=== PATIENT | female | born 1965 | race Caucasian/White ===

== ENCOUNTER 2020-01-03 13:06 | Emergency (ER) | payer OTHER, SELFPAY ==
[2020-01-03] VITALS (14 sets, daily range): BP systolic 116–173; BP diastolic 72–95; PULSE 55–95; RESP 8–22; TEMP 36.7; O2SAT 94–99
--- NOTE | 2020-01-03 13:30 | RT.EKG_ITS ---
APPROVED REPORT Exam: Resting ECG Patient Location: E HR:58 bpm ECG Measurements Heart Rate 58 AXIS RI 144 P 57 QRSd 76 QRS -11 QT 394 T 21 QTc 386 <Conclusion> Bradycardia with irregular rate...V-rate 52- 70, mean < 60 I have reviewed and interpreted ECG and agree with software generated interpretation.
--- NOTE | 2020-01-03 13:45 | DI.RAD_ITS ---
EXAM: XR PORTABLE CHEST AP CLINICAL HISTORY: cough/sob/PUI TECHNIQUE: 2D digital imaging was performed. COMPARISON: No exams were available for comparison FINDINGS: LUNGS: Clear. No pleural abnormality seen. HEART: Normal. MEDIASTINUM: Normal. OTHER FINDINGS: None. IMPRESSION: No acute pulmonary findings. DATA REPOSITORY: RADIATION DOSE DELIVERED:
[2020-01-03 14:13] LABS: Abs Immature Grans 0.01 k/cumm (0.0-0.09); Absolute Basophil Count 0.02 k/cumm (0.0-0.2); Absolute Eosinophil Count 0.16 k/cumm (0.0-0.7); Absolute Lymphocyte Count 1.98 k/cumm (1.2-3.4); Absolute Monocyte Count 0.44 k/cumm (0.11-0.7); Absolute Neutrophil Count 2.42 k/cumm (1.2-6.7); Basophils % 0.4; Eosinophils % 3.2; HCT 45.9 % (36.0-46.0); HGB 15.2 g/dL (12.0-15.5); Immature Grans % 0.2 %; Lymphocytes % 39.4; Mean Corp. HGB Concentration 33.1 g/dL (32.0-36.0); Mean Corpuscular Hemoglobin 30.9 pg (27.0-33.0); Mean Corpuscular Volume 93.3 fL (80-95); Mean Platelet Volume 9.5 fL (8.0-11.0); Monocytes % 8.7; Neutrophils % 48.1; Platelet Count 269 x1000/uL (130-400); RBC 4.92 m/cumm (4.00-5.20); RBC Distribution Width 14.2 % (11.7-14.6); White Blood Cell Count 5.03 k/cumm (4.4-10.8)
[2020-01-03 14:33] LABS: ALT 29 U/L (14-59); AST 21 U/L (15-37); Albumin 3.9 g/dL (3.4-5.0); Alkaline Phosphatase 63 U/L (46-116); Anion Gap 10.6 mmol/L (3-11); BUN 14 mg/dL (7-18); Bilirubin, Total 0.4 mg/dL (0.2-1.0); CO2 26.4 mmol/L (21.0-32.0); CREATININE 0.87 mg/dL (0.55-1.02); Calcium 9.5 mg/dL (8.5-10.1); Chloride 104 mmol/L (98-107); Glucose 90 mg/dL (74-106); Potassium 3.9 mmol/L (3.5-5.1); Sodium 141 mmol/L (136-145); Total Protein 7.8 g/dL (6.4-8.2)
[2020-01-03 14:34] LABS: Troponin I < 0.05 ng/mL (<0.06)
--- NOTE | 2020-01-03 15:03 | W.ED.GENAD ---
Discharge Plan Disposition Patient Disposition: HOME Condition: Stable Discharge Details Chief Complaint: GenMedical Clinical Impression: Cough Primary Care Provider: [facility],Local ED Provider: Alberto Limon Home Meds and New Rx's Prescriptions: Continued alprazolam 1 mg Tablet 1 mg PO BID RF: 0 valacyclovir 500 mg Tablet 500 mg PO DAILY RF: 0 alprazolam 0.5 mg Tablet 0.5 mg PO DAILY PRNRF: 0 Discharge Instructions Instructions: Acute Cough (ED) Additional Instructions: Work-up in the ER today has been unremarkable for any obvious emergent process. This very well may be a viral syndrome however your COVID test is pending. Please refer to the COVID testing handout for further instructions regarding self quarantine and proper follow-up. In the meantime rest, plenty of fluids to avoid dehydration, and bwib-[id number]-rjmqytt medications as directed symptomatic control. Please watch for new or worsening symptoms and return to the ER for any concerns otherwise if you decide to stay in this area for a prolonged period of time you may want to obtain a local primary care provider here and in [place]. Stand Alone Forms: POSITIVE COVID-19/TO BE TESTED Medical Decision Making 54-year-old female with a history of anxiety presents with subjective fever, chills, dry cough, body aches for the past week. She did recently travel to and from [place]. Her son did have similar symptoms. She presents slightly anxious and hypertensive however her blood pressure did trend down without any intervention. O2 sat in the 90s on room air. She appears well, nontoxic. No respiratory distress whatsoever. Given her chest heaviness. Will obtain a single EKG and troponin. Symptoms over last around 10:00 so this is roughly 4 hours after the fact, a single troponin and EKG should be sufficient for cardiac rule out especially that ACS is extremely low my differential. Given her lack of tachycardia, hypoxia, chest pain, leg pain or swelling, I will not obtain a d-dimer as PE is extremely low suspicion. Her symptoms are certainly more infectious in nature whether this is viral or bacterial, will obtain 1 view chest x-ray here in the ER and test for COVID. No breathing treatments indicated at this time. Patient is comfortable this plan and has no additional questions or concerns Work-up in the ER including blood work, EKG, troponin, chest x-ray all unremarkable. Patient resting comfortably and in no acute distress. Discussed her work-up, COVID test pending, importance of self quarantining until results are completed. Patient does not have a local primary care provider, she will contact the ER tomorrow in roughly 24 hours to see if her COVID test has resulted. She is no longer anxious and she appears well. She has no additional questions or concerns and is comfortable with discharge. Imaging Data Radiologic Study: Attestation: I personally reviewed and interpreted this imaging study as follows: Imaging: X-Ray Radiologist's impression: Chest x-ray read by radiology as negative Lab Data Lab results reviewed: Yes I reviewed the patient's lab results. Lab results narrative: Laboratory Tests Range/Units 01/03/20 01/03/20 14:00 14:00 WBC (4.4-10.8) k/cumm 5.03 RBC (4.00-5.20) m/cumm 4.92 Hgb (12.0-15.5) g/dL 15.2 Hct (36.0-46.0) % 45.9 MCV (80-95) fL 93.3 MCH (27.0-33.0) pg 30.9 MCHC (32.0-36.0) g/dL 33.1 RDW (11.7-14.6) % 14.2 Plt Count (130-400) x1000/uL 269 MPV (8.0-11.0) fL 9.5 Immature Gran % % 0.2 Neutrophils % 48.1 Lymphocytes % 39.4 Monocytes % 8.7 Eosinophils % 3.2 Basophils % 0.4 Absolute Neutrophils (1.2-6.7) k/cumm 2.42 Absolute Lymphocytes (1.2-3.4) k/cumm 1.98 Absolute Monocytes (0.11-0.7) k/cumm 0.44 Absolute Eosinophils (0.0-0.7) k/cumm 0.16 Absolute Basophils (0.0-0.2) k/cumm 0.02 Sodium (136-145) mmol/L 141 Potassium (3.5-5.1) mmol/L 3.9 Chloride (98-107) mmol/L 104 Carbon Dioxide (21.0-32.0) mmol/L 26.4 Anion Gap (3-11) mmol/L 10.6 BUN (7-18) mg/dL 14 Creatinine (0.55-1.02) mg/dL 0.87 Estimated GFR/1.73 m2 (mL/min/1.73m2) >= 60.00 Glucose (74-106) mg/dL 90 Calcium (8.5-10.1) mg/dL 9.5 Total Bilirubin (0.2-1.0) mg/dL 0.4 AST (15-37) U/L 21 ALT (14-59) U/L 29 Alkaline Phosphatase (46-116) U/L 63 Troponin I (<0.06) ng/mL < 0.05 Total Protein (6.4-8.2) g/dL 7.8 Albumin (3.4-5.0) g/dL 3.9 ECG Data Attestation: I personally reviewed and interpreted this ECG (s) as follows: Prior ECG tracings: available for review Interpretation: EKG performed at 1352, reviewed and interpreted with Dr. Berumen. Bradycardia, ventricular to 58. No STEMI. Please see her official read HPI General Mode of arrival: ambulatory. Date/Time Provider Initiated Documentation: 01/03/20 13:18. Limitations to Documentation: no limitations. Information obtained by: patient. HPI Narrative: This is a 54-year-old female with history of anxiety who reports that she has been in [place] since the beginning of November. She then went to [place] via plane on December 19 for a , return to [place] on December 26. A day or 2 after returning she reports that she developed having generalized fatigue, body aches, subjective fever and chills, dry cough and occasional chest heaviness. She has never taken her temperature. She has not taken any itji-azr-ozpwjwa medications. She denies any chest pain, wheezing, productive cough. Denies pain or swelling in her legs. She reports that her son had similar symptoms and tested negative for COVID. She has an appointment tomorrow for Covid testing but was directed to the ER for further evaluation today. She denies any cardiac or pulmonary history. She did smoke cigarettes roughly 9 years ago. Related Data Home Medications Medication Instructions Recorded Confirmed alprazolam 0.5 mg PO DAILY PRN 01/03/20 01/03/20 alprazolam 1 mg PO BID 01/03/20 01/03/20 valacyclovir 500 mg PO DAILY 01/03/20 01/03/20 Allergies Allergy/AdvReac Type Severity Reaction Status Date / Time Sulfa (Sulfonamide Allergy Other (See Unverified 01/03/20 13:23 Antibiotics) Comment) lorazepam [From Ativan] AdvReac Other (See Unverified 01/03/20 13:24 Comment) General Stated Complaint: GenMedical QUINTEN: 3 Review of Systems Constitutional Constitutional: Reports fatigue, Reports fever(s) (Subjective) and Denies weakness ENT Ears, Nose, Mouth, and Throat: Denies neck pain and Reports sore throat (Last Tuesday) Cardiovascular Cardiovascular: Denies chest pain and Denies dyspnea Respiratory Respiratory: Reports cough, Denies dyspnea and Denies wheezing Gastrointestinal Gastrointestinal: Denies abdominal pain, Reports nausea (On Tuesday, none currently) and Denies vomiting Genitourinary Genitourinary: Denies dysuria Musculoskeletal Musculoskeletal: Denies back pain, Denies neck pain, Denies numbness and Denies tingling Integumentary/Breasts Skin/Breast: Denies rash Neurologic Neurologic: Denies numbness, Denies tingling and Denies weakness Endocrine Endocrine: Reports fatigue Allergic/Immunologic Allergic/Immunologic: Denies wheezing [facility] Social History Smoking/Tobacco Use Status: Former Tobacco Use Alcohol Intake: current Alcohol Intake frequency: holidays/special occasions only Drug use: Never Substance use type: does not use Do you feel safe at home: Yes Do you feel safe in your relationship?: Yes Exam Const General: cooperative, healthy appearing, comfortable, no acute distress and anxious Orientation: alert and awake [facility] Head: normal to inspection, normocephalic and atraumatic Face and sinus: normal facial exam Mouth: moist mucous membranes Throat: posterior oropharynx normal Eyes Conjunctivae: conjunctivae normal Sclera: sclerae normal Neck Neck: normal visual inspection, full ROM, no lymphadenopathy, trachea midline and supple Resp Effort & Inspection: normal respiratory effort and able to speak in complete sentences Auscultation: clear to auscultation bilaterally Cardio Rate: regular rate Rhythm: regular rhythm GI Palpation: soft and nontender Back/Spine/Pelvis Back: No back tenderness Skin General skin exam: no rashes or lesions noted Neuro General: patient alert, patient awake, moves all extremities and no focal motor deficits Motor: muscle tone normal throughout and strength 5/5 throughout Sensory Exam: no sensory deficits noted Extrem General: normal to inspection, full ROM, capillary refill normal, no pedal edema, no calf tenderness and other (Negative Homans sign bilaterally) Psych Appearance: grossly normal Mental Status: mental status grossly normal Course Vital Signs Vital signs: Vital Signs Temperature 36.7 C 01/03/20 13:16 Pulse 95 H 01/03/20 13:16 Respiratory Rate 18 01/03/20 13:16 Blood Pressure 173/95 H 01/03/20 13:16 Pulse Oximetry 97 01/03/20 13:16 Temperature 36.7 C 01/03/20 13:16 Temperature Source Temporal Artery Scan 01/03/20 13:16 Pulse 66 01/03/20 14:45 Pulse 69 01/03/20 14:50 Respiratory Rate 14 01/03/20 14:50 Respiratory Effort Non-Labored 01/03/20 13:27 Respiratory Depth Normal 01/03/20 13:27 Respiratory Pattern Normal 01/03/20 13:27 Blood Pressure 143/91 H 01/03/20 14:45 Blood Pressure Mean 105 01/03/20 14:45 Blood Pressure Position Sitting 01/03/20 13:16 Pulse Oximetry 94 L 01/03/20 14:50 Oxygen Delivery Method Room Air 01/03/20 13:16 Oxygen Flow Rate 0 01/03/20 13:16 Pain Level 0 01/03/20 13:16 Lab/Test Results Lab/Test Results: Laboratory Tests Range/Units 01/03/20 01/03/20 14:00 14:00 WBC (4.4-10.8) k/cumm 5.03 RBC (4.00-5.20) m/cumm 4.92 Hgb (12.0-15.5) g/dL 15.2 Hct (36.0-46.0) % 45.9 MCV (80-95) fL 93.3 MCH (27.0-33.0) pg 30.9 MCHC (32.0-36.0) g/dL 33.1 RDW (11.7-14.6) % 14.2 Plt Count (130-400) x1000/uL 269 MPV (8.0-11.0) fL 9.5 Immature Gran % % 0.2 Neutrophils % 48.1 Lymphocytes % 39.4 Monocytes % 8.7 Eosinophils % 3.2 Basophils % 0.4 Absolute Neutrophils (1.2-6.7) k/cumm 2.42 Absolute Lymphocytes (1.2-3.4) k/cumm 1.98 Absolute Monocytes (0.11-0.7) k/cumm 0.44 Absolute Eosinophils (0.0-0.7) k/cumm 0.16 Absolute Basophils (0.0-0.2) k/cumm 0.02 Sodium (136-145) mmol/L 141 Potassium (3.5-5.1) mmol/L 3.9 Chloride (98-107) mmol/L 104 Carbon Dioxide (21.0-32.0) mmol/L 26.4 Anion Gap (3-11) mmol/L 10.6 BUN (7-18) mg/dL 14 Creatinine (0.55-1.02) mg/dL 0.87 Estimated GFR/1.73 m2 (mL/min/1.73m2) >= 60.00 Glucose (74-106) mg/dL 90 Calcium (8.5-10.1) mg/dL 9.5 Total Bilirubin (0.2-1.0) mg/dL 0.4 AST (15-37) U/L 21 ALT (14-59) U/L 29 Alkaline Phosphatase (46-116) U/L 63 Troponin I (<0.06) ng/mL < 0.05 Total Protein (6.4-8.2) g/dL 7.8 Albumin (3.4-5.0) g/dL 3.9
--- NOTE | 2020-01-06 15:13 | NUR.NOTE ---
Nursing Note: Patient has been calling every day for her COVID results. She will call back tomorrow. She states she was told it would be 24-48 hrs for the result. I told patient that if the result printed off [email or web address] that she would get a phone call. Ellen Denny.
[2020-01-09 01:34] LABS: SARS-CoV-2 RNA Undetected (Undetected); SARS-CoV-2 Specimen Source Nasopharynx
== END 2020-01-03 15:35 | disposition home or self-care (01) ==
PROVIDERS: Emergency Provider Physician Assistant
DX: R50.9 Fever, unspecified (principal); R05 Cough; M79.10 Myalgia, unspecified site; Z11.59 Encounter for screening for other viral diseases
CPT/HCPCS: 36415; 80053; 93005; 99285; U0003; 71045; 84484; 85025; 93010; 99284